=== PATIENT | male | born 1995 | race Caucasian/White ===

== ENCOUNTER 2023-08-10 13:01 | Outpatient (CLI) | payer OTHER | END 2023-08-10 13:02 | disposition home or self-care (01) | LOC: CSHULT 13:01 | PROVIDERS: ATTEND Family Medicine | DX: N50.82 Scrotal pain (principal) | CPT/HCPCS: 76870 ==

== ENCOUNTER 2023-08-27 20:59 | Emergency (ER) | payer OTHER ==
[2023-08-27] MEDS ORDERED: hydrALAZINE 25 MG TAB ONE (21:22)
== END 2023-08-27 23:58 | disposition home or self-care (01) ==
LOC: CSHERS 20:59
DX: I47.9 Paroxysmal tachycardia, unspecified (principal); Z87.891 Personal history of nicotine dependence; R51.9 Headache, unspecified
CPT/HCPCS: 93005; 93010; 96374; 96375; J1100; J1200; J1885; J2405

== ENCOUNTER 2023-08-30 19:40 | Emergency (ER) | payer OTHER ==
[2023-08-30] MEDS ORDERED: Ondansetron PF 4 MG/2 ML Vial ONE (21:34)
[2023-08-30] MEDS ORDERED: Acetaminophen 500 MG TAB ONE (21:34)
[2023-08-30 21:58] LABS: #Basophils 0.02 10x3/uL (0.0-0.2); #Eosinphils 0.05 10x3/uL (0.0-0.5); #Monocytes 0.65 10x3/uL (0.0-1.1); %Basophils 0.3 % (0.0-2.0); %Eosinophils 0.6 % (0.0-6.0); %Lymphocytes 14.9 % (18.0-47.0); %Monocytes 8.4 % (0.0-10.0); %Neutrophils 75.4 % (40.0-75.0); Hematocrit 43.5 % (38.8-50.0); Hemoglobin 15.7 g/dL (13.5-17.5); Mean Corpuscular HGB CONC 36.1 g/dL (32.0-36.0); Mean Corpuscular Hemoglobin 30.4 pg (27.0-33.0); Mean Corpuscular Volume 84.3 fL (81.2-95.1); Mean Platelet Volume 9.9 fL (7.4-10.4); Platelet Count 272 10x3/uL (150-450); RBC Distribution Width 12.3 % (11.5-14.5); Red Blood Cell (RBC) Count 5.16 10x6/uL (4.32-5.72); White Blood Cell (WBC) Count 7.7 10x3/uL (3.5-10.5)
[2023-08-30] MEDS ORDERED: Aspirin 81 mg Enteric Coated Tablet ONE (22:01)
[2023-08-30 22:20] LABS: ALT (SGPT) 29 U/L (8-55); AST (SGOT) 21 U/L (5-34); Albumin 4.2 g/dL (3.5-5.0); Alkaline Phosphatase 72 U/L (40-110); Anion Gap 15 mmol/L (10-20); BUN (Urea Nitrogen) 9 mg/dL (8.9-20.6); Bilirubin, Total 1.4 mg/dL (0.2-1.2); Calc. Creatinine Clearance 0 mL/min (70-130); Calcium 9.5 mg/dL (7.8-10.44); Carbon Dioxide 23 mmol/L (22-29); Chloride 103 mmol/L (98-107); Estimated GFR 122; Glucose 107 mg/dL (70-105); Lipase 12 U/L (8-78); Potassium 3.3 mmol/L (3.5-5.1); Protein, Total 7.2 g/dL (6.0-8.3); Sodium 138 mmol/L (136-145)
[2023-08-30 22:22] LABS: Troponin I Less than 0.010 ng/mL (< 0.028)
[2023-08-30 22:46] LABS: Influenza A by NAA Not Detected (NotDetected); Influenza B by NAA Not Detected (NotDetected); SARS-CoV-2 NAA Rapid Test Not Detected (NotDetected)
[2023-08-30 22:56] LABS: Bilirubin Neg (Negative); Blood, Urine Negative (Negative); Clarity Clear (Clear); Glucose, Urine (Dipstick) Normal (Negative); Ketone, Urine Negative (Negative); Leukocyte Negative (Negative); Nitrite Negative (Negative); Protein, Urine (Dipstick) Negative (Neg-Trace); Specific Gravity, Urine 1.005 (1.005-1.030); Urobilinogen Normal mg/dL (Less than 2)
[2023-08-30] MEDS ORDERED: Dicyclomine 20 MG/2 ML VIAL ONE (23:03)
[2023-08-30 23:08] LABS: Bacteria/HPF None Seen HPF (None Seen); CAUTI Indications for Culture Pelvic or flank pain; RBC/HPF 0-3 HPF (0-3); Squamous Epithelial 0-3 HPF (0-3); WBC/HPF 0-3 HPF (0-3)
[2023-08-30 23:09] LABS: Urine Culture Reflex No No
== END 2023-08-31 01:05 | disposition home or self-care (01) ==
LOC: CSHERS 19:40
DX: R10.9 Unspecified abdominal pain (principal); R11.2 Nausea with vomiting, unspecified; R19.7 Diarrhea, unspecified; Z87.891 Personal history of nicotine dependence
CPT/HCPCS: 71045; 74177; 80053; 81001; 83690; 84484; 85025; 93005; 93010; 96361; 96372; 96374; J2405

== ENCOUNTER 2023-09-18 16:12 | Emergency (ER) | payer OTHER | END 2023-09-18 18:59 | disposition home or self-care (01) | LOC: CSHERS 16:12 | DX: I31.9 Disease of pericardium, unspecified (principal); Z87.891 Personal history of nicotine dependence | CPT/HCPCS: 36415; 71046; 80053; 84484; 85025; 93005; 96372; J1885 ==

== ENCOUNTER 2023-10-05 14:47 | Emergency (ER) | payer OTHER ==
[2023-10-05 16:12] LABS: #Basophils 0.04 10x3/uL (0.0-0.2); #Eosinphils 0.03 10x3/uL (0.0-0.5); #Neutrophils 3.16 10x3/uL (1.5-8.4); %Basophils 0.7 % (0.0-2.0); %Eosinophils 0.6 % (0.0-6.0); %Lymphocytes 32.5 % (18.0-47.0); %Monocytes 7.4 % (0.0-10.0); %Neutrophils 58.6 % (40.0-75.0); Hematocrit 41.9 % (38.8-50.0); Mean Corpuscular HGB CONC 35.8 g/dL (32.0-36.0); Mean Corpuscular Volume 86.6 fL (81.2-95.1); Mean Platelet Volume 10.4 fL (7.4-10.4); Platelet Count 347 10x3/uL (150-450); RBC Distribution Width 12.2 % (11.5-14.5); Red Blood Cell (RBC) Count 4.84 10x6/uL (4.32-5.72); White Blood Cell (WBC) Count 5.4 10x3/uL (3.5-10.5)
[2023-10-05 16:31] LABS: Troponin I Less than 0.010 ng/mL (< 0.028)
[2023-10-05 16:33] LABS: ALT (SGPT) 24 U/L (8-55); AST (SGOT) 21 U/L (5-34); Albumin 4.6 g/dL (3.5-5.0); Alkaline Phosphatase 64 U/L (40-110); Anion Gap 13 mmol/L (10-20); BUN (Urea Nitrogen) 11 mg/dL (8.9-20.6); Bilirubin, Total 0.8 mg/dL (0.2-1.2); Calc. Creatinine Clearance 0 mL/min (70-130); Calcium 10.3 mg/dL (7.8-10.44); Carbon Dioxide 22 mmol/L (22-29); Chloride 108 mmol/L (98-107); Estimated GFR 124; Globulin 2.9 g/dL (2.4-3.5); Glucose 95 mg/dL (70-105); Potassium 4.3 mmol/L (3.5-5.1); Protein, Total 7.5 g/dL (6.0-8.3); Sodium 139 mmol/L (136-145)
== END 2023-10-05 17:23 | disposition home or self-care (01) ==
LOC: CSHERS 14:47
DX: R07.9 Chest pain, unspecified (principal); Z55.6 Problems related to health literacy; Z87.891 Personal history of nicotine dependence
CPT/HCPCS: 36415; 71045; 80053; 84484; 85025; 93005

== ENCOUNTER 2023-11-08 13:00 | Emergency (ER) | payer OTHER ==
[~2023-11-08 13:00] MED LIST: Iopamidol 300 61% 100 ML VIAL FS ONE
[2023-11-08] MEDS ORDERED: Ketorolac Tromethamine 30 MG (1 mL) VIAL ONE (14:10)
[2023-11-08 14:42] LABS: #Basophils 0.03 10x3/uL (0.0-0.2); #Eosinphils 0.19 10x3/uL (0.0-0.5); #Monocytes 0.75 10x3/uL (0.0-1.1); #Neutrophils 8.37 10x3/uL (1.5-8.4); %Basophils 0.3 % (0.0-2.0); %Eosinophils 1.7 % (0.0-6.0); %Lymphocytes 16.9 % (18.0-47.0); %Monocytes 6.6 % (0.0-10.0); %Neutrophils 74.2 % (40.0-75.0); Hemoglobin 14.1 g/dL (13.5-17.5); Mean Corpuscular HGB CONC 34.4 g/dL (32.0-36.0); Mean Corpuscular Hemoglobin 29.7 pg (27.0-33.0); Mean Corpuscular Volume 86.5 fL (81.2-95.1); Platelet Count 315 10x3/uL (150-450); RBC Distribution Width 12.1 % (11.5-14.5); Red Blood Cell (RBC) Count 4.74 10x6/uL (4.32-5.72); White Blood Cell (WBC) Count 11.3 10x3/uL (3.5-10.5)
[2023-11-08 15:00] LABS: ALT (SGPT) 35 U/L (8-55); AST (SGOT) 19 U/L (5-34); Albumin 4.3 g/dL (3.5-5.0); Alkaline Phosphatase 59 U/L (40-110); Anion Gap 14 mmol/L (10-20); BUN (Urea Nitrogen) 15 mg/dL (8.9-20.6); Bilirubin, Total 0.8 mg/dL (0.2-1.2); Calc. Creatinine Clearance 0 mL/min (70-130); Calcium 10.3 mg/dL (7.8-10.44); Carbon Dioxide 24 mmol/L (22-29); Chloride 107 mmol/L (98-107); Estimated GFR 123; Globulin 2.8 g/dL (2.4-3.5); Glucose 101 mg/dL (70-105); Magnesium 1.6 mg/dL (1.6-2.6); Potassium 3.7 mmol/L (3.5-5.1); Protein, Total 7.1 g/dL (6.0-8.3); Sodium 141 mmol/L (136-145)
[2023-11-08 15:06] LABS: Troponin I Less than 0.010 ng/mL (< 0.028)
== END 2023-11-08 16:03 | disposition home or self-care (01) ==
LOC: CSHERS 13:00
DX: R09.1 Pleurisy (principal); Z87.891 Personal history of nicotine dependence
CPT/HCPCS: 36415; 71045; 71270; 80053; 83735; 83880; 84484; 85025; 86140; 93005; 96374; J1885; Q9967